=== PATIENT | female | born 1945 | race Asian ===

== ENCOUNTER → 2021-03-21 | Outpatient (CLI) | payer OTHER ==
[2015-05-16 22:37] VITALS: BP 132/65
[~2021-03-21] MED LIST: ASPI-630 PO; ATOR10TA60 PO; CA C1TAB35 PO; CHOL200074 PO; FEXO180T81 PO; FLUT16SP2 NS; LEVO25TA4 PO; LISI10TA16 PO; METF500T25 PO; MULT-658 PO; OMEG1CAP38 PO; TRAM-48 PO
--- NOTE | 2021-03-21 17:32 | RAD ---
EXAM: Bilateral lower extremity arterial Doppler sonogram. HISTORY: Pain. Peripheral vascular disease. Atherosclerosis. TECHNIQUE: Dumont scale and color Doppler sonographic imaging of the lower extremity arteries with spec tral analysis was performed. COMPARISON: None. FINDINGS: There is minimal atherosclerotic plaque involving the common femoral and superficial femora l arteries. There are biphasic and triphasic waveforms and normal peak systolic velocities throughout the lower extremity arteries. IMPRESSION: 1. Minimal atherosclerotic plaque involving the lower extremity arteries. 2. No evidence of hemodynamically significant stenosis or occlusion. Electronically signed by: Rosalia Hi MD (03/21/2021 5:29 PM) [id number]
== END ==
LOC: US 10:44
PROVIDERS: ATTEND Family Medicine
DX: I73.9 Peripheral vascular disease, unspecified (principal)
CPT/HCPCS: 93925